=== PATIENT | female | born 1935 | race Caucasian/White ===

== ENCOUNTER 2016-07-27 15:45 | Outpatient (CLI) | payer MEDICARE | END 2016-07-27 15:46 | DX: L03.032 Cellulitis of left toe (principal) ==

== ENCOUNTER 2017-05-15 12:04 | Outpatient (CLI) | payer MEDICARE | END 2017-05-15 12:05 | disposition short-term general hospital (02) | LOC: EMS 12:04 | PROVIDERS: ATTEND Surgery | DX: R10.2 Pelvic and perineal pain (principal); R11.2 Nausea with vomiting, unspecified | CPT/HCPCS: A0425; A0429; A0888 ==

== ENCOUNTER 2017-05-24 08:00 | Outpatient (CLI) | payer MEDICARE, OTHER ==
[2017-05-25 00:12] LABS: BASOPHILS % (AUTO) 1.1 %; EOSINOPHILS # (AUTO) 0.2 10^3/uL (0.0-0.7); EOSINOPHILS % (AUTO) 4.3 %; HGB - HEMOGLOBIN 10.6 g/dL (12.0-16.0); LYMPHOCYTES # (AUTO) 0.6 10^3/uL (1.5-3.5); LYMPHOCYTES % (AUTO) 13.4 %; MEAN CORPUSCULAR HEMOGLOBIN 31.3 pg (27.0-31.0); MEAN CORPUSCULAR HGB CONC 34.2 g/dL (32.0-36.0); MEAN CORPUSCULAR VOLUME 91.5 fL (81.0-99.0); MEAN PLATELET VOLUME 7.2 fL (7.9-10.8); MONOCYTES # (AUTO) 0.6 10^3/uL (0.0-1.0); MONOCYTES % (AUTO) 13.5 %; NEUTROPHILS # (AUTO) 2.9 10^3/uL (1.5-6.6); NEUTROPHILS % (AUTO) 67.7 %; PLT - PLATELET COUNT 303 10^3/uL (130-450); RED BLOOD COUNT 3.38 10^6/uL (4.20-5.40); RED CELL DISTRIBUTION WIDTH 16.3 % (12.0-15.0); WHITE BLOOD COUNT 4.2 x10^3/uL (4.8-10.8)
[2017-05-25 00:29] LABS: CALCIUM 9.1 mg/dL (8.5-10.3); CREATININE 0.5 mg/dL (0.4-1.0)
== END 2017-05-24 23:59 | disposition home or self-care (01) ==
LOC: LAB.R 08:00
DX: I10 Essential (primary) hypertension (principal); D55.1 Anemia due to other disorders of glutathione metabolism
CPT/HCPCS: 80048; 85025

== ENCOUNTER 2017-09-01 20:27 | Outpatient (CLI) | payer MEDICARE, OTHER | END 2017-09-01 20:28 | disposition critical access hospital (66) | LOC: EMS 20:27 | PROVIDERS: ATTEND Surgery | DX: I46.9 Cardiac arrest, cause unspecified (principal) | CPT/HCPCS: A0425; A0433 ==

== ENCOUNTER 2017-09-01 20:41 | Emergency (ER) | payer MEDICARE, OTHER ==
[2017-09-01] MEDS ORDERED: CALCIUM GLUCONATE 1000 MG/10 ML VIAL IVP STA (20:56)
[2017-09-01] MEDS ORDERED: NALOXONE 0.4 MG/ML VIAL IVP STA (20:58)
[2017-09-01] MEDS ORDERED: SODIUM CHLORIDE 0.9% 1,000 ML IV ONE ×3 (21:09→22:10)
[2017-09-01 21:25] LABS: BASOPHILS # (AUTO) 0.1 10^3/uL (0.0-0.1); BASOPHILS % (AUTO) 0.7 %; EOSINOPHILS % (AUTO) 0.3 %; HGB - HEMOGLOBIN 10.1 g/dL (12.0-16.0); LYMPHOCYTES # (AUTO) 1.3 10^3/uL (1.5-3.5); LYMPHOCYTES % (AUTO) 13.8 %; MEAN CORPUSCULAR HGB CONC 31.8 g/dL (32.0-36.0); MEAN CORPUSCULAR VOLUME 97.6 fL (81.0-99.0); MEAN PLATELET VOLUME 6.6 fL (7.9-10.8); MONOCYTES # (AUTO) 0.2 10^3/uL (0.0-1.0); NEUTROPHILS # (AUTO) 7.9 10^3/uL (1.5-6.6); NEUTROPHILS % (AUTO) 83.2 %; PLT - PLATELET COUNT 145 10^3/uL (130-450); RED BLOOD COUNT 3.26 10^6/uL (4.20-5.40); RED CELL DISTRIBUTION WIDTH 17.4 % (12.0-15.0); WHITE BLOOD COUNT 9.5 x10^3/uL (4.8-10.8)
--- NOTE | 2017-09-01 21:31 | ED Physician Documentation ---
PD HPI CPR - Stated complaint Stated Complaint: CPR - Chief complaint Chief Complaint: Critical Care - History obtained from History obtained from: EMS - History of Present Illness Timing - onset: Today Timing - onset during: Rest Recently seen: Emergency Dept Witnessed: Arrest not witnesssed Fall: No fall Bystander CPR: Downtime before CPR (20 min) EMS findings: Unresponsive, Apneic, Pulseless Treatment ATTENDING PATHOLOGIST: CPR, Defibrillated, Oxygen, Intubated, Epi, Sodium Bicarb Advanced directive: No advanced directive, Full code - Additional information Additional information: patient is a 81 year old female with a history of colon cancer, and chronic pain who was brought in by ems for cardiac arrest. According to ems, and later family the patient recently went to another ER yesterday for pain management, patient was not prescribed medications and was discharged home. Family was able to get medications from the [facility]. Patient took 4mg of dilaudid according to the . went outside and when he came back in patient was apneic. He called ems but he did not know cpr. EMS arrived about 15-20 minutes later. When they arrived she was pulseless and apenic. Patient was intubated and cpr was initiated. While with the patient 2 epi, 1 bicarb and defibrillation was performed on course v-vib. Upon initial evaluation cpr was being performed. stated that she wanted everything done. Review of Systems Unable to obtain: Unresponsive, Intubated PD ED PE EXPANDED - General General: Other (intubated) - HEENT HEENT: Pupils unequal, Dry mucous membranes, Other (intubated) - Eyes Eyes: Unequal pupils, Other (pupils unreactive) - Neck Neck: JVD present - Cardiac Cardiac: Other (pulseless cpr in progress). No: Femoral strong equal, Pedal strong equal - Respiratory Respiratory: Other (breath sounds bilaterally, but course) - Abdomen Abdomen: No: Distended - Derm Derm: Other (mild distal cyanosis) - Neuro Neuro: Unresponsive - GCS Eye Opening: None Motor: None Verbal: None Total: 3 Results - Vitals Vitals: Vital Signs - 24 hr 09/01/17 09/01/17 09/01/17 20:54 20:55 21:07 Temperature 36.3 C L Heart Rate 123 H 87 Respiratory 20 Rate Blood Pressure 73/61 L 103/34 L O2 Saturation 84 L 09/01/17 09/01/17 09/01/17 21:23 21:31 21:54 Temperature Heart Rate 80 70 67 Respiratory 20 20 20 Rate Blood Pressure 43/31 L 108/97 H O2 Saturation 09/01/17 09/01/17 09/01/17 21:59 22:03 22:19 Temperature 35.4 C L 35.3 C L Heart Rate 68 69 67 Respiratory 20 18 20 Rate Blood Pressure 93/71 80/54 L O2 Saturation 09/01/17 09/01/17 09/01/17 22:34 22:35 23:00 Temperature Heart Rate 68 80 79 Respiratory 20 20 Rate Blood Pressure 74/56 L 63/48 L O2 Saturation 09/01/17 23:06 Temperature Heart Rate 79 Respiratory 20 Rate Blood Pressure 51/31 L O2 Saturation Oxygen O2 Source Mechanical ventilator - EKG (time done) 2051 Rhythm: Sinus tachycardia Hector: Normal Intervals: Prolonged QT QRS: Low voltage Ischemia: Q waves Other comments: Other comments (pvcs) Compare to prior EKG: Old EKG unavailable Computer interpretation: Agree with computer - Labs Labs: Laboratory Tests 09/01/17 09/01/17 09/01/17 21:09 21:18 21:18 WBC 9.5 RBC 3.26 L Hgb 10.1 L Hct 31.8 L MCV 97.6 MCH 31.0 MCHC 31.8 L RDW 17.4 H Plt Count 145 MPV 6.6 L Neut # 7.9 H Lymph # 1.3 L Sargent # 0.2 Eos # 0.0 Baso # 0.1 Absolute Nucleated RBC 0.01 Nucleated RBC % 0.1 PT INR APTT Sodium 137 Potassium 4.0 Chloride 96 L Carbon Dioxide 20 L Anion Gap 21.0 H BUN 27 H Creatinine 0.8 Estimated GFR (MDRD) 69 L Glucose 244 H Lactic Acid > 10.0 H* Calcium 11.0 H Phosphorus 8.3 H Magnesium 2.6 Total Bilirubin 0.6 AST 280 H ALT 246 H Alkaline Phosphatase 91 Total Creatine Kinase 388 H CK-MB (CK-2) Troponin I Total Protein 4.3 L Albumin 2.3 L Globulin 2.0 L Albumin/Globulin Ratio 1.1 Lipase 396 H 09/01/17 09/01/17 09/01/17 21:18 21:18 21:18 WBC RBC Hgb Hct MCV MCH MCHC RDW Plt Count MPV Neut # Lymph # Sargent # Eos # Baso # Absolute Nucleated RBC Nucleated RBC % PT 42.9 H INR 4.0 H APTT 53.4 H Sodium Potassium Chloride Carbon Dioxide Anion Gap BUN Creatinine Estimated GFR (MDRD) Glucose Lactic Acid Calcium Phosphorus Magnesium Total Bilirubin AST ALT Alkaline Phosphatase Total Creatine Kinase CK-MB (CK-2) 10.3 H Troponin I 0.28 Total Protein Albumin Globulin Albumin/Globulin Ratio Lipase - Rads (name of study) chest x-ray Radiology: Final report received, Discussed with rads (inbutated, central line in place, left sided apical pneumo, right sided effusion and possible mass) Procedures - Central Line Central Line Preparation: Unable to obtain consent Central line location: Left IJ Central line type: Triple lumen Central line aftercare: Chlorhexidine disc placed, Secured, Placement confirmed , No complications PD MEDICAL DECISION MAKING - ED course Complexity details: reviewed old records, reviewed results, re-evaluated patient , considered differential, d/w family ED course: Patient was seen and examined at bedside. CPR was in progress. On the first pulse check patient was treated with calcium and additional naloxone. Patient had palpable pulses so cpr was stopped. ekg was performed which showed sinus tach and multiple pvcs. Patient's peripheral access was blown and patient was hypotensive. Patient's arrived and he was made aware that there would likely be brain injury and poor outcomes. Patient was chilled. left IJ was placed under ultrasound guidance. Patient was stared on a levophed drip as well as IV fluids. Patient's remained unresponsive even without any sedation. Patient continued to drop her blood pressure and epi drip was started. Patient was also found to have a left sided pneumo, likely secondary to the chest compression, possibly the central line but it was only 1cm. patient's lactic acid was greater than ten and showed sign of end organ damage. Case was discussed with the patient's , and son who called. it was decided to terminate care. Drips were dropped and ventilation discontinued. Patient's pulse ceased within a few minutes. Patient was pronounced at 23:19. - Critical Care Time(min): 40 Time Includes: Direct patient care, Review records, Coordinate care Data interpretation: Labs, Pulse ox, CXR, Cardiac output, See progress note Departure - Departure Disposition: 20 Clinical Impression: Cardiac arrest Condition: Critical
[2017-09-01 21:44] LABS: TROPONIN I 0.28 ng/mL (<0.49)
[2017-09-01 21:46] LABS: CREATINE KINASE MB 10.3 ng/mL (0.6-6.3)
--- NOTE | 2017-09-01 21:47 | XRAY Preliminary Report ---
Exam: XR CHEST 1 VIEW X-RAY IMPRESSION: Left pneumothorax. Right pleural effusion. Right hilar fullness, suspicious for mass. Critical result: Results called to Dr. Dozier in the emergency department on 09/01/2017 9:45 PM. [facility] SITE ID: [id number]
--- NOTE | 2017-09-01 21:47 | XRAY Report ---
EXAM: CHEST RADIOGRAPHY EXAM DATE: 09/01/2017 09:33 PM. CLINICAL HISTORY: Central line placement. COMPARISON: None. TECHNIQUE: 1 view. FINDINGS: Lungs/Pleura: Left pneumothorax, measuring 1.5 cm at the apex, extending down to the base. Right pleu ral effusion. Right hilar prominence, suspicious for mass. Mediastinum: Endotracheal tube terminates approximately 3 cm above the soren. Left jugular central v enous catheter terminates in the superior vena cava. Other: None. IMPRESSION: Left pneumothorax. Right pleural effusion. Right hilar fullness, suspicious for mass. Critical result: Results called to Dr. Dozier in the emergency department on 09/01/2017 9:45 PM. [facility] Referring Provider Line: [phone] SITE ID: [id number]
[2017-09-01 21:55] LABS: ALBUMIN 2.3 g/dL (3.2-5.5); ALBUMIN/GLOBULIN RATIO 1.1 (1.0-2.2); BILIRUBIN,TOTAL 0.6 mg/dL (0.2-1.0); CREATININE 0.8 mg/dL (0.4-1.0); MAGNESIUM 2.6 mg/dL (1.7-2.8); PHOSPHORUS 8.3 mg/dL (2.5-4.6); TOTAL PROTEIN 4.3 g/dL (6.7-8.2)
--- NOTE | 2017-09-01 21:56 | XRAY Preliminary Report ---
Exam: XR CHEST 1 VIEW X-RAY IMPRESSION: Right effusion and likely right hilar mass. Abnormal lucency of the left hemithorax, like ly representing a left pneumothorax. Critical result: Results discussed with Dr. Dozier in the emergency department on 09/01/2017 at 9: 45 PM. [facility] SITE ID: [id number]
--- NOTE | 2017-09-01 21:56 | XRAY Report ---
EXAM: CHEST RADIOGRAPHY EXAM DATE: 09/01/2017 09:13 PM. CLINICAL HISTORY: Intubated. COMPARISON: None. TECHNIQUE: 1 view. FINDINGS: Lungs/Pleura: Right pleural effusion. Right hilar fullness, suspicious for mass. Abnormal lucency of the left hemithorax, suspicious for pneumothorax on this supine film. Mediastinum: Within exam limitations, the cardiomediastinal contour is normal. Other: Endotracheal tube terminating approximately 5 cm above the soren. IMPRESSION: Right effusion and likely right hilar mass. Abnormal lucency of the left hemithorax, like ly representing a left pneumothorax. Critical result: Results discussed with Dr. Dozier in the emergency department on 09/01/2017 at 9: 45 PM. [facility] Referring Provider Line: [phone] SITE ID: [id number]
[2017-09-01] MEDS ORDERED: EPINEPHrine 4 MG in DEXTROSE 5% 246 ML IVP STA (22:16)
[2017-09-01 22:20] LABS: PT - PROTHROMBIN TIME 42.9 secs (9.9-12.6)
[2017-09-01] MEDS ORDERED: CALCIUM CHLORIDE ABBOJECT 1000MG/10 ML SYRINGE IVP ONE (23:00)
[2017-09-01] MEDS ORDERED: EPINEPHrine 4 MG in DEXTROSE 5% 246 ML IVP SCH ×2 (23:00→23:45)
[2017-09-01] MEDS ORDERED: NALOXONE 0.4 MG/1 ML 10 ML MDV IVP ONE (23:00)
[2017-09-01] MEDS ORDERED: EPINEPHrine ABBOJECT 1 MG/10 ML SYRINGE IVP ONE (23:00)
[2017-09-01 23:07] VITALS: BP 51/31
[2017-09-01] MEDS ORDERED: SODIUM CHLORIDE INHALATION 3 ML NEB ONE ×2 (23:09→23:37)
== END 2017-09-01 23:20 | disposition expired ==
LOC: EDUNIT# → ED 20:41
DX: I46.9 Cardiac arrest, cause unspecified (principal)
CPT/HCPCS: 36415; 36556; 51702; 71045; 80053; 82550; 82553; 83605; 83690; 83735; 84100; 84484; 85025; 85610; 85730; 87040; 92950; 93005; 94770; 96361; 96365; 96366; 96375; 99285; 99291